=== PATIENT | female | born 1995 | race Caucasian/White ===

== ENCOUNTER 2017-05-15 09:33 | Emergency (ER) | payer MEDICAID ==
[~2017-05-15] VITALS: Ht 160 cm; Wt 93.7 kg
[~2017-05-15 09:33] MED LIST: ALBU8.5H8 INH
[2017-05-15 09:36] VITALS: BP 110/83
[2017-05-15] MEDS ORDERED: ALBUTEROL/IPRATROPIUM 2.5MG/0.5MG, 3 ML ONE (10:42)
== END 2017-05-15 11:07 | disposition home or self-care (01) ==
LOC: ED 11:01
DX: J45.31 Mild persistent asthma with (acute) exacerbation (principal); J20.9 Acute bronchitis, unspecified
CPT/HCPCS: 71020; 94640; 99284; J7512

== ENCOUNTER 2017-05-26 15:16 | Emergency (ER) | payer MEDICAID ==
[~2017-05-26] VITALS: Ht 160 cm; Wt 95.3 kg
[2017-05-26 15:18] VITALS: BP 131/84
[2017-05-26] MEDS ORDERED: ALBUTEROL/IPRATROPIUM 2.5MG/0.5MG, 3 ML ONE (15:47)
[2017-05-26] MEDS ORDERED: ALBUTEROL/IPRATROPIUM 2.5MG/0.5MG, 3 ML NPPB ONE (16:00)
== END 2017-05-26 16:41 | disposition home or self-care (01) ==
LOC: ED 16:10
DX: J45.909 Unspecified asthma, uncomplicated (principal)
CPT/HCPCS: 93005; 94640; 99283; J7512; J7620

== ENCOUNTER 2017-06-21 09:50 | Emergency (ER) | payer MEDICAID ==
[~2017-06-21] VITALS: Ht 160 cm; Wt 95.8 kg
[2017-06-21 10:11] VITALS: BP 129/84
== END 2017-06-21 10:43 | disposition home or self-care (01) ==
LOC: ED 10:30
DX: Z76.0 Encounter for issue of repeat prescription (principal); J45.909 Unspecified asthma, uncomplicated
CPT/HCPCS: 99283

== ENCOUNTER 2018-07-08 05:18 | Emergency (ER) | payer BC, OTHER ==
[~2018-07-08] VITALS: Ht 157.5 cm; Wt 80.0 kg
[~2018-07-08 05:18] MED LIST changes: +FLUT1AER INH
[2018-07-08] MEDS ORDERED: SODIUM CHLORIDE FLUSH 10ML SYR IVF ONE (05:30)
[2018-07-08] MEDS ORDERED: ONDANSETRON 2MG/ML, 2ML IVPush ONE (05:30)
[2018-07-08] MEDS ORDERED: SODIUM CHLORIDE 0.9% 1,000ML IVBOLUS ONE (05:30)
[2018-07-08] MEDS ORDERED: ONDANSETRON 2MG/ML, 2ML ONE (05:54)
[2018-07-08 06:04] LABS: BASOPHILS # (AUTO) 0.03 x10^3/uL (0-0.1); BASOPHILS % (AUTO) 0 % (0-1); EOSINOPHILS # (AUTO) 0.04 x10^3/uL (0-0.4); EOSINOPHILS % (AUTO) 0 % (1-7); LYMPHOCYTES # (AUTO) 1.11 x10^3/uL (1-3.4); LYMPHOCYTES % (AUTO) 9 % (22-44); MD NO; MEAN CORPUSCULAR HEMOGLOBIN 28.6 pg (27.0-34.8); MEAN CORPUSCULAR HGB CONC 33.8 g/dL (32.4-35.8); MEAN CORPUSCULAR VOLUME 84.6 fL (80-100); MEAN PLATELET VOLUME 8.8 fL (7.4-10.4); MONOCYTES % (AUTO) 8 % (2-9); NEUTROPHILS # (AUTO) 10.22 x10^3/uL (1.8-6.8); NEUTROPHILS % (AUTO) 83 % (42-75); PLATELET COUNT 230 x10^3/uL (130-400); RED BLOOD COUNT 5.22 x10^6/uL (3.82-5.3); RED CELL DISTRIBUTION WIDTH 13.8 % (9.6-15.2)
[2018-07-08 06:14] LABS: ALBUMIN 3.6 g/dL (3.4-5.0); ANION GAP 16 mmol/L (5-15); CALCIUM 9.3 mg/dL (8.5-10.1); CHLORIDE 100 mmol/L (98-107)
[2018-07-08 06:16] LABS: ALANINE AMINOTRANSFERASE 19 U/L (12-78); ALKALINE PHOSPHATASE 70 U/L (45-117); BILIRUBIN,TOTAL 0.5 mg/dL (0.2-1.0); CREATININE 0.99 mg/dL (0.55-1.02); TOTAL PROTEIN 9.1 g/dL (6.4-8.2)
[2018-07-08] MEDS ORDERED: KETOROLAC 30 MG/1 ML IVPush ONE (07:00)
[2018-07-08] MEDS ORDERED: KETOROLAC 30 MG/1 ML ONE (07:04)
[2018-07-08 07:41] LABS: HCG UR SG 1.034 (1.003-1.030); MICROSCOPIC AUTO
[2018-07-08 07:46] LABS: CULTURE INDICATED? NO
[2018-07-08 08:00] VITALS: BP 106/63
== END 2018-07-08 08:03 | disposition home or self-care (01) ==
LOC: ED 05:46
DX: G43.A1 Cyclical vomiting, in migraine, intractable (principal)
CPT/HCPCS: 36415; 80053; 81001; 81025; 83690; 85025; 96361; 96374; 96375; 99283; J1885; J2405; J7030

== ENCOUNTER 2020-02-05 10:47 | Inpatient (IN) | payer BC ==
[~2020-02-05] VITALS: Ht 157.5 cm; Wt 88.1 kg
[2020-02-05] MEDS ORDERED: ONDANSETRON 2MG/ML, 2ML ONE (11:28)
[2020-02-05] MEDS ORDERED: MORPHINE SULFATE 4 MG/ML, 1ML ONE (11:28)
[2020-02-05] MEDS ORDERED: SODIUM CHLORIDE 0.9% 1,000ML IVBOLUS ONE (11:30)
[2020-02-05] MEDS ORDERED: ONDANSETRON 2MG/ML, 2ML IVPush ONE (11:30)
[2020-02-05] MEDS ORDERED: MORPHINE SULFATE 4 MG/ML, 1ML IVPush PRN (11:30)
--- NOTE | 2020-02-05 11:49 | NUR ---
pt to ed from home. sts "gall bladder issues" since November. nausea/vomiting. no appetite, hurts to eat, unintended weight loss of 35 lbs since november . Had HIDA scan and us at [facility], was told needed gall bladder out but [facility] did not schedule her and her pcp told her to go to ed today. abd soft, tender, 6/10 pain. labs/piv/meds per sep plan for US. as
[2020-02-05 12:04] LABS: BASOPHILS # (AUTO) 0.04 x10^3/uL (0-0.1); BASOPHILS % (AUTO) 1 % (0-1); EOSINOPHILS % (AUTO) 1 % (1-7); LYMPHOCYTES # (AUTO) 1.55 x10^3/uL (1-3.4); LYMPHOCYTES % (AUTO) 20 % (22-44); MD NO; MEAN CORPUSCULAR HEMOGLOBIN 28.5 pg (27.0-34.8); MEAN CORPUSCULAR HGB CONC 32.9 g/dL (32.4-35.8); MEAN CORPUSCULAR VOLUME 86.7 fL (80-100); MEAN PLATELET VOLUME 11.1 fL (7.4-10.4); MONOCYTES # (AUTO) 0.88 x10^3/uL (0.2-0.8); MONOCYTES % (AUTO) 11 % (2-9); NEUTROPHILS # (AUTO) 5.25 x10^3/uL (1.8-6.8); NEUTROPHILS % (AUTO) 67 % (42-75); PLATELET COUNT 212 x10^3/uL (130-400); RED BLOOD COUNT 6.06 x10^6/uL (3.82-5.3); RED CELL DISTRIBUTION WIDTH 13.4 % (9.6-15.2)
[2020-02-05 12:20] LABS: ALKALINE PHOSPHATASE 66 U/L (45-117); BILIRUBIN,TOTAL 0.8 mg/dL (0.2-1.0); TOTAL PROTEIN 8.3 g/dL (6.4-8.2)
[2020-02-05 12:27] LABS: ANION GAP 15 mmol/L (5-15); CALCIUM 9.9 mg/dL (8.5-10.1); CHLORIDE 95 mmol/L (98-107)
[2020-02-05 12:28] LABS: ALANINE AMINOTRANSFERASE 41 U/L (12-78); ALBUMIN 3.6 g/dL (3.4-5.0); CREATININE 0.85 mg/dL (0.55-1.02)
--- NOTE | 2020-02-05 12:42 | NUR ---
k 2.1. notified elie and matheus. pa in room for update. pt has pancreatitis, tbadm, krider ordered, placed on monitor SR 90s. ekg obtained. us in prog. pt agrees w poc. as
--- NOTE | 2020-02-05 12:59 | NUR ---
rupesh wilcox from pharm. as
[2020-02-05] MEDS ORDERED: POTASSIUM CHLORIDE 40 MEQ in SODIUM CHLORIDE 0.9% 500 ML IV ONE ×2 (13:00→15:30)
[2020-02-05] MEDS ORDERED: ROCURONIUM 10 MG/ML,10ML ONE (13:15)
[2020-02-05] MEDS ORDERED: DEXAMETHASONE 4 MG/ML, 1ML ONE (13:15)
[2020-02-05] MEDS ORDERED: SUCCINYLCHOLINE 20 MG/ML, 10ML ONE (13:15)
--- NOTE | 2020-02-05 14:10 | NUR ---
report to luis ferrara. as
[2020-02-05] MEDS ORDERED: BISACODYL 10 MG SUPP PR PRN (15:00)
[2020-02-05] MEDS ORDERED: POLYETHYLENE GLYCOL 17 GM PACKET PO PRN (15:00)
[2020-02-05] MEDS ORDERED: ACETAMINOPHEN 325 MG TABLET PO PRN (15:00)
[2020-02-05] MEDS ORDERED: MELATONIN 5 MG TABLET PO PRN (15:00)
[2020-02-05] MEDS ORDERED: DOCUSATE 100 MG CAPSULE PO PRN (15:00)
[2020-02-05 15:09] VITALS: BP 92/67
[2020-02-05] MEDS: ENOXAPARIN 40 MG/0.4 ML SQ SCH (15:21)
[2020-02-05] MEDS: morphine SULFATE 10 MG/ML, 1ML IVPush PRN ×3 (15:22→21:36)
[2020-02-05] MEDS ORDERED: D5%-LR+KCL 20MEQ 1,000 ML IV SCH (15:30)
[2020-02-05 15:49] LABS: C-REACTIVE PROTEIN, QUANT 2.1 mg/dL (0.02-0.49)
[2020-02-05 16:03] LABS: HCT (SEDRATE) 52.5 % (34.6-47.8)
[2020-02-05] MEDS ORDERED: SODIUM PHOSPHATE 20 MMOL in SODIUM CHLORIDE 0.9% 500 ML IV ONE (17:00)
[2020-02-05] MEDS: ONDANSETRON 2MG/ML, 2ML IVPush PRN ×2 (17:07→23:05)
[2020-02-05 17:25] VITALS: BP 87/67
[2020-02-05 17:26] VITALS: BP 103/69
[2020-02-05 17:27] VITALS: BP 90/69
[2020-02-05 19:09] VITALS: BP 106/74
[2020-02-05 19:23] LABS: MICROSCOPIC INDICATED
[2020-02-05] MEDS: LACTATED RINGERS 1,000 ML IV SCH (21:00)
[2020-02-05] MEDS: FAMOTIDINE 20 MG/2 ML IVPush SCH (21:35)
[2020-02-05] MEDS ORDERED: OMNIPAQUE 350 MG/ML, 100ML BOTTLE ONE (23:19)
[2020-02-06 00:59] VITALS: BP 95/60
[2020-02-06 01:15] LABS: ANION GAP 10 mmol/L (5-15); CHLORIDE 104 mmol/L (98-107); CREATININE 0.63 mg/dL (0.55-1.02)
[2020-02-06] MEDS: ONDANSETRON 2MG/ML, 2ML IVPush PRN ×3 (05:29→20:00)
[2020-02-06] MEDS: morphine SULFATE 10 MG/ML, 1ML IVPush PRN ×3 (05:29→16:47)
[2020-02-06 05:30] VITALS: BP 101/65
[2020-02-06] MEDS: LACTATED RINGERS 1,000 ML IV SCH ×2 (06:05→16:23)
[2020-02-06 06:27] LABS: CHLORIDE 107 mmol/L (98-107)
[2020-02-06 06:31] LABS: BASOPHILS # (AUTO) 0.04 x10^3/uL (0-0.1); BASOPHILS % (AUTO) 1 % (0-1); EOSINOPHILS # (AUTO) 0.29 x10^3/uL (0-0.4); EOSINOPHILS % (AUTO) 5 % (1-7); LYMPHOCYTES # (AUTO) 2.67 x10^3/uL (1-3.4); LYMPHOCYTES % (AUTO) 42 % (22-44); MD NO; MEAN CORPUSCULAR HGB CONC 33.6 g/dL (32.4-35.8); MEAN PLATELET VOLUME 11.3 fL (7.4-10.4); MONOCYTES % (AUTO) 13 % (2-9); NEUTROPHILS # (AUTO) 2.55 x10^3/uL (1.8-6.8); NEUTROPHILS % (AUTO) 40 % (42-75); PLATELET COUNT 131 x10^3/uL (130-400); RED BLOOD COUNT 4.37 x10^6/uL (3.82-5.3); RED CELL DISTRIBUTION WIDTH 13.7 % (9.6-15.2)
[2020-02-06 06:44] LABS: ALANINE AMINOTRANSFERASE 27 U/L (12-78); ALBUMIN 2.5 g/dL (3.4-5.0); ALKALINE PHOSPHATASE 42 U/L (45-117); ANION GAP 12 mmol/L (5-15); BILIRUBIN,TOTAL 0.4 mg/dL (0.2-1.0); CALCIUM 8.3 mg/dL (8.5-10.1); CHOL/HDL RATIO 5.5; CHOLESTEROL, TOTAL 122 mg/dL (140-239); CREATININE 0.57 mg/dL (0.55-1.02); HDL CHOL % 18 % (28-40); HDL CHOLESTEROL (DIRECT) 22 mg/dL (40-60); LDL CHOLESTEROL,CALCULATED 72 mg/dL (54-169); LDL/HDL RATIO 3.3 (0.5-3.0); TOTAL PROTEIN 5.3 g/dL (6.4-8.2); TRIGLYCERIDES 141 mg/dL (50-200); VLDL CHOLESTEROL 28 mg/dL (0-25)
[2020-02-06] MEDS: FAMOTIDINE 20 MG/2 ML IVPush SCH ×2 (08:26→21:24)
[2020-02-06 08:57] VITALS: BP 106/57
[2020-02-06 09:41] LABS: MICROSCOPIC INDICATED
[2020-02-06 09:44] LABS: HCG UR SG > 1.045 (1.003-1.030)
[2020-02-06] MEDS ORDERED: BUPIVACAINE/EPI 0.5% 1:200K ONE (10:19)
[2020-02-06] MEDS ORDERED: MIDAZOLAM 1 MG/ML, 2ML ONE (11:41)
[2020-02-06] MEDS ORDERED: FENTANYL PF 250 MCG/5ML ONE (11:41)
[2020-02-06] MEDS ORDERED: PROPOFOL 50 ML ONE (11:41)
[2020-02-06] MEDS ORDERED: BUPIVACAINE/EPI 0.5% 1:200K IM ONE (13:26)
[2020-02-06] MEDS ORDERED: POTASSIUM CHLORIDE 40 MEQ in SODIUM CHLORIDE 0.9% 500 ML IV ONE (13:30)
[2020-02-06] MEDS: FENTANYL PF 100 MCG/2ML IV PRN ×2 (14:23→14:45)
[2020-02-06] MEDS ORDERED: OXYcodone 5 MG/5 ML ORAL.SOL UDC ONE (14:24)
[2020-02-06] MEDS ORDERED: MORPHINE SULFATE 4 MG/ML, 1ML ONE (14:24)
[2020-02-06] MEDS ORDERED: PROMETHAZINE 25 MG/ML, 1ML IVPush PRN (14:30)
[2020-02-06] MEDS ORDERED: ALBUTEROL SULFATE 2.5 MG/3 ML NPPB PRN (14:30)
[2020-02-06] MEDS ORDERED: hydrALAzine 20 MG/ML, 1ML IV PRN (14:30)
[2020-02-06] MEDS ORDERED: ACETAMINOPHEN 325 MG TABLET PO PRN (14:30)
[2020-02-06] MEDS ORDERED: ONDANSETRON 2MG/ML, 2ML IVPush PRN (14:30)
[2020-02-06] MEDS ORDERED: MEPERIDINE/PF 25MG/0.5ML IVPush PRN (14:30)
[2020-02-06] MEDS ORDERED: OXYcodone 5 MG/5 ML ORAL.SOL UDC PO PRN (14:30)
[2020-02-06] MEDS ORDERED: LABETALOL 5MG/ML, 20ML IV PRN (14:30)
[2020-02-06] MEDS ORDERED: morphine SULFATE 10 MG/ML, 1ML IVPush PRN (14:30)
[2020-02-06] MEDS ORDERED: FENTANYL PF 100 MCG/2ML ONE (14:35)
[2020-02-06] MEDS ORDERED: ONDANSETRON 2MG/ML, 2ML ONE (14:55)
[2020-02-06] MEDS ORDERED: METOCLOPRAMIDE 5 MG/ML, 2ML ONE (14:58)
[2020-02-06] MEDS: METOCLOPRAMIDE 5 MG/ML, 2ML IVPush PRN (14:59)
[2020-02-06] MEDS ORDERED: ONDANSETRON 2MG/ML, 2ML IVPush ONE (15:00)
[2020-02-06 15:50] VITALS: BP 108/74
[2020-02-06] MEDS: ENOXAPARIN 40 MG/0.4 ML SQ SCH (16:22)
[2020-02-06] MEDS ORDERED: ONDANSETRON 4 MG TABLET PO PRN (16:30)
[2020-02-06 19:03] VITALS: BP 82/57
[2020-02-06] MEDS: OXYcodone/APAP 5/325MG TABLET PO PRN (20:04)
[2020-02-06 20:51] LABS: ANION GAP 10 mmol/L (5-15); CALCIUM 7.8 mg/dL (8.5-10.1); CHLORIDE 108 mmol/L (98-107); CREATININE 0.54 mg/dL (0.55-1.02)
[2020-02-07] MEDS: OXYcodone/APAP 5/325MG TABLET PO PRN ×7 (00:28→22:17)
[2020-02-07 00:37] VITALS: BP 92/64
[2020-02-07] MEDS: ONDANSETRON ODT 4 MG PO PRN ×2 (02:40→20:00)
[2020-02-07] MEDS: morphine SULFATE 10 MG/ML, 1ML IVPush PRN ×3 (02:56→20:10)
[2020-02-07 04:00] VITALS: BP 93/65
[2020-02-07 05:18] LABS: ALBUMIN 2.3 g/dL (3.4-5.0); ANION GAP 8 mmol/L (5-15); CALCIUM 7.5 mg/dL (8.5-10.1); CHLORIDE 109 mmol/L (98-107)
[2020-02-07 05:19] LABS: BASOPHILS # (AUTO) 0.03 x10^3/uL (0-0.1); BASOPHILS % (AUTO) 1 % (0-1); EOSINOPHILS # (AUTO) 0.02 x10^3/uL (0-0.4); EOSINOPHILS % (AUTO) 0 % (1-7); LYMPHOCYTES % (AUTO) 22 % (22-44); MD NO; MEAN CORPUSCULAR HGB CONC 33.5 g/dL (32.4-35.8); MEAN CORPUSCULAR VOLUME 86.6 fL (80-100); MEAN PLATELET VOLUME 11.2 fL (7.4-10.4); MONOCYTES # (AUTO) 0.54 x10^3/uL (0.2-0.8); MONOCYTES % (AUTO) 11 % (2-9); NEUTROPHILS # (AUTO) 3.26 x10^3/uL (1.8-6.8); NEUTROPHILS % (AUTO) 66 % (42-75); PLATELET COUNT 110 x10^3/uL (130-400); RED BLOOD COUNT 3.94 x10^6/uL (3.82-5.3); RED CELL DISTRIBUTION WIDTH 14.1 % (9.6-15.2)
[2020-02-07 05:23] LABS: ALANINE AMINOTRANSFERASE 32 U/L (12-78); ALKALINE PHOSPHATASE 40 U/L (45-117); BILIRUBIN,TOTAL 0.4 mg/dL (0.2-1.0); CREATININE 0.39 mg/dL (0.55-1.02); TOTAL PROTEIN 5.3 g/dL (6.4-8.2)
[2020-02-07] MEDS: LACTATED RINGERS 1,000 ML IV SCH (05:26)
[2020-02-07] MEDS: METOCLOPRAMIDE 5 MG/ML, 2ML IVPush PRN ×3 (05:42→21:58)
[2020-02-07] MEDS ORDERED: POTASSIUM CHLORIDE 40 MEQ in SODIUM CHLORIDE 0.9% 500 ML IV ONE (09:00)
[2020-02-07] MEDS ORDERED: MAGNESIUM SULFATE PMX 2GM/50ML 50 ML IV ONE (09:00)
[2020-02-07 09:20] VITALS: BP 90/68
[2020-02-07] MEDS: FAMOTIDINE 20 MG/2 ML IVPush SCH (09:24)
[2020-02-07] MEDS: ONDANSETRON 2MG/ML, 2ML IVPush PRN ×2 (09:33→16:18)
[2020-02-07 14:02] VITALS: BP 106/72
[2020-02-07 14:24] VITALS: BP 90/60
[2020-02-07] MEDS: ENOXAPARIN 40 MG/0.4 ML SQ SCH (16:18)
[2020-02-07 19:06] VITALS: BP 118/67
[2020-02-07] MEDS: FAMOTIDINE 20 MG TABLET PO SCH (20:00)
[2020-02-08] MEDS: LACTATED RINGERS 1,000 ML IV SCH ×2 (01:09→22:00)
[2020-02-08] MEDS: morphine SULFATE 10 MG/ML, 1ML IVPush PRN ×6 (01:13→23:04)
[2020-02-08 04:01] VITALS: BP 103/68
[2020-02-08 04:41] LABS: CHLORIDE 112 mmol/L (98-107)
[2020-02-08 04:45] LABS: ANION GAP 8 mmol/L (5-15); CALCIUM 7.4 mg/dL (8.5-10.1); CREATININE 0.49 mg/dL (0.55-1.02)
[2020-02-08 07:00] VITALS: BP 94/61
[2020-02-08] MEDS ORDERED: POTASSIUM CHLORIDE 20 MEQ in SODIUM CHLORIDE 0.9% 250 ML IV ONE (09:30)
[2020-02-08] MEDS ORDERED: FAMOTIDINE 20 MG/2 ML ONE (09:35)
[2020-02-08] MEDS: FAMOTIDINE 20 MG TABLET PO SCH ×3 (09:38→21:40)
[2020-02-08] MEDS: ONDANSETRON 2MG/ML, 2ML IVPush PRN ×3 (09:38→23:04)
[2020-02-08] MEDS: METOCLOPRAMIDE 5 MG/ML, 2ML IVPush PRN ×2 (09:39→15:45)
[2020-02-08] MEDS ORDERED: MORPHINE SULFATE 4 MG/ML, 1ML ONE (10:23)
[2020-02-08 14:49] VITALS: BP 100/69
[2020-02-08] MEDS: ENOXAPARIN 40 MG/0.4 ML SQ SCH (15:45)
[2020-02-08 20:18] VITALS: BP 93/65
[2020-02-08] MEDS ORDERED: FAMOTIDINE 40 MG TABLET ONE (21:38)
[2020-02-09 02:00] VITALS: BP 102/70
[2020-02-09] MEDS: LACTATED RINGERS 1,000 ML IV SCH ×2 (05:30→16:15)
[2020-02-09 06:24] LABS: BASOPHILS # (AUTO) 0.02 x10^3/uL (0-0.1); BASOPHILS % (AUTO) 1 % (0-1); EOSINOPHILS # (AUTO) 0.14 x10^3/uL (0-0.4); EOSINOPHILS % (AUTO) 4 % (1-7); LYMPHOCYTES # (AUTO) 2.09 x10^3/uL (1-3.4); LYMPHOCYTES % (AUTO) 52 % (22-44); MD NO; MEAN CORPUSCULAR VOLUME 87.9 fL (80-100); MEAN PLATELET VOLUME 10.6 fL (7.4-10.4); MONOCYTES # (AUTO) 0.49 x10^3/uL (0.2-0.8); MONOCYTES % (AUTO) 12 % (2-9); NEUTROPHILS # (AUTO) 1.25 x10^3/uL (1.8-6.8); NEUTROPHILS % (AUTO) 31 % (42-75); PLATELET COUNT 111 x10^3/uL (130-400); RED BLOOD COUNT 3.95 x10^6/uL (3.82-5.3); RED CELL DISTRIBUTION WIDTH 14.6 % (9.6-15.2)
[2020-02-09 06:27] LABS: ALBUMIN 2.1 g/dL (3.4-5.0); ANION GAP 6 mmol/L (5-15); CALCIUM 7.7 mg/dL (8.5-10.1); CHLORIDE 107 mmol/L (98-107); CREATININE 0.36 mg/dL (0.55-1.02)
[2020-02-09 07:12] VITALS: BP 98/66
[2020-02-09] MEDS ORDERED: FAMOTIDINE 40 MG TABLET ONE (08:58)
[2020-02-09] MEDS: morphine SULFATE 10 MG/ML, 1ML IVPush PRN ×3 (09:08→21:00)
[2020-02-09] MEDS: POTASSIUM CHLORIDE 20 MEQ in SODIUM CHLORIDE 0.9% 250 ML IV SCH ×2 (09:08→22:27)
[2020-02-09] MEDS: ONDANSETRON 2MG/ML, 2ML IVPush PRN (09:08)
[2020-02-09] MEDS ORDERED: MAGNESIUM SULFATE PMX 2GM/50ML 50 ML IV ONE (10:00)
[2020-02-09 13:35] VITALS: BP 97/68
[2020-02-09] MEDS: METOCLOPRAMIDE 5 MG/ML, 2ML IVPush PRN (16:11)
[2020-02-09] MEDS: ENOXAPARIN 40 MG/0.4 ML SQ SCH (16:19)
[2020-02-09 20:54] VITALS: BP 108/71
[2020-02-09] MEDS: FAMOTIDINE 20 MG/2 ML IV SCH (21:00)
[2020-02-09] MEDS: OXYcodone/APAP 5/325MG TABLET PO PRN (22:40)
[2020-02-10 01:56] VITALS: BP 96/53
[2020-02-10] MEDS: LACTATED RINGERS 1,000 ML IV SCH (03:28)
[2020-02-10] MEDS: OXYcodone/APAP 5/325MG TABLET PO PRN ×2 (03:28→21:03)
[2020-02-10 05:44] LABS: BASOPHILS # (AUTO) 0.02 x10^3/uL (0-0.1); BASOPHILS % (AUTO) 1 % (0-1); EOSINOPHILS # (AUTO) 0.18 x10^3/uL (0-0.4); EOSINOPHILS % (AUTO) 4 % (1-7); LYMPHOCYTES # (AUTO) 2.14 x10^3/uL (1-3.4); LYMPHOCYTES % (AUTO) 53 % (22-44); MD NO; MEAN CORPUSCULAR HEMOGLOBIN 28.9 pg (27.0-34.8); MEAN CORPUSCULAR HGB CONC 32.5 g/dL (32.4-35.8); MEAN CORPUSCULAR VOLUME 88.8 fL (80-100); MEAN PLATELET VOLUME 10.4 fL (7.4-10.4); MONOCYTES # (AUTO) 0.49 x10^3/uL (0.2-0.8); MONOCYTES % (AUTO) 12 % (2-9); NEUTROPHILS # (AUTO) 1.23 x10^3/uL (1.8-6.8); NEUTROPHILS % (AUTO) 30 % (42-75); PLATELET COUNT 121 x10^3/uL (130-400); RED CELL DISTRIBUTION WIDTH 14.4 % (9.6-15.2)
[2020-02-10 06:01] LABS: CHLORIDE 109 mmol/L (98-107)
[2020-02-10 06:05] LABS: ALBUMIN 2.1 g/dL (3.4-5.0); ANION GAP 6 mmol/L (5-15); CALCIUM 7.8 mg/dL (8.5-10.1); CREATININE 0.38 mg/dL (0.55-1.02)
[2020-02-10 07:35] VITALS: BP 90/60
[2020-02-10] MEDS: FAMOTIDINE 20 MG/2 ML IV SCH ×2 (08:40→19:56)
[2020-02-10] MEDS: morphine SULFATE 10 MG/ML, 1ML IVPush PRN ×3 (08:49→19:56)
[2020-02-10] MEDS: POTASSIUM CHLORIDE 20 MEQ in SODIUM CHLORIDE 0.9% 250 ML IV SCH ×2 (09:14→19:56)
[2020-02-10] MEDS: D5%-0.45NACL+KCL 20MEQ 1,000 ML IV SCH (11:42)
[2020-02-10 12:26] VITALS: BP 103/71
[2020-02-10] MEDS: ONDANSETRON 2MG/ML, 2ML IVPush PRN ×2 (14:45→19:56)
[2020-02-10] MEDS: METOCLOPRAMIDE 5 MG/ML, 2ML IVPush PRN (16:30)
[2020-02-10] MEDS: ENOXAPARIN 40 MG/0.4 ML SQ SCH (16:30)
[2020-02-10 20:00] VITALS: BP 110/68
[2020-02-11] MEDS: D5%-0.45NACL+KCL 20MEQ 1,000 ML IV SCH ×3 (01:49→23:00)
[2020-02-11] MEDS: ONDANSETRON 2MG/ML, 2ML IVPush PRN ×4 (01:50→20:32)
[2020-02-11] MEDS: morphine SULFATE 10 MG/ML, 1ML IVPush PRN ×2 (01:50→17:02)
[2020-02-11 02:15] VITALS: BP 98/62
[2020-02-11 04:52] LABS: BASOPHILS # (AUTO) 0.03 x10^3/uL (0-0.1); BASOPHILS % (AUTO) 1 % (0-1); EOSINOPHILS # (AUTO) 0.21 x10^3/uL (0-0.4); EOSINOPHILS % (AUTO) 5 % (1-7); LYMPHOCYTES # (AUTO) 2.41 x10^3/uL (1-3.4); LYMPHOCYTES % (AUTO) 50 % (22-44); MD NO; MEAN CORPUSCULAR HEMOGLOBIN 29.1 pg (27.0-34.8); MEAN CORPUSCULAR HGB CONC 33.3 g/dL (32.4-35.8); MEAN CORPUSCULAR VOLUME 87.6 fL (80-100); MEAN PLATELET VOLUME 10.4 fL (7.4-10.4); MONOCYTES # (AUTO) 0.51 x10^3/uL (0.2-0.8); MONOCYTES % (AUTO) 11 % (2-9); NEUTROPHILS # (AUTO) 1.65 x10^3/uL (1.8-6.8); NEUTROPHILS % (AUTO) 34 % (42-75); PLATELET COUNT 131 x10^3/uL (130-400); RED BLOOD COUNT 4.03 x10^6/uL (3.82-5.3); RED CELL DISTRIBUTION WIDTH 14.6 % (9.6-15.2)
[2020-02-11 04:58] LABS: ALBUMIN 2.1 g/dL (3.4-5.0); CHLORIDE 112 mmol/L (98-107)
[2020-02-11 05:01] LABS: CREATININE 0.42 mg/dL (0.55-1.02)
[2020-02-11 05:22] LABS: ANION GAP 3 mmol/L (5-15)
[2020-02-11 07:00] VITALS: BP 104/72
[2020-02-11] MEDS: FAMOTIDINE 20 MG/2 ML IV SCH ×2 (07:57→20:32)
[2020-02-11 13:43] VITALS: BP 114/77
[2020-02-11] MEDS: METOCLOPRAMIDE 5 MG/ML, 2ML IVPush PRN (15:14)
[2020-02-11] MEDS: ENOXAPARIN 40 MG/0.4 ML SQ SCH (16:58)
[2020-02-11 19:08] VITALS: BP 101/67
[2020-02-11] MEDS: OXYcodone/APAP 5/325MG TABLET PO PRN (20:32)
[2020-02-12 00:24] VITALS: BP 95/68
[2020-02-12 06:52] VITALS: BP 114/78
[2020-02-12] MEDS: FAMOTIDINE 20 MG/2 ML IV SCH (08:38)
[2020-02-12] MEDS: ONDANSETRON 2MG/ML, 2ML IVPush PRN ×2 (08:38→14:20)
[2020-02-12] MEDS: D5%-0.45NACL+KCL 20MEQ 1,000 ML IV SCH (10:06)
[2020-02-12] MEDS: METOCLOPRAMIDE 5 MG/ML, 2ML IVPush PRN (11:19)
[2020-02-12 12:35] VITALS: BP 106/74
[2020-02-12] MEDS: OXYcodone/APAP 5/325MG TABLET PO PRN (14:20)
[2020-02-12] MEDS ORDERED: ONDA4TAB13 PO (14:27)
[2020-02-12] MEDS: ENOXAPARIN 40 MG/0.4 ML SQ SCH (16:30)
[2020-02-12] MEDS ORDERED: OXYC-302 PO (16:36)
== END 2020-02-12 17:02 | disposition home or self-care (01) | DRG 417 ==
LOC: ED 12:45 → SUATTDRO 13:06 → 4EST 14:41 → ED 14:53 → EDIP 14:53 → 4EST 15:46 → 4NE 02-06 15:32 → DCLOUNGE 02-12 16:48
PROVIDERS: ADMIT Internal Medicine; ATTEND Family Medicine
PROC: 0FT44ZZ Resection of Gallbladder, Percutaneous Endoscopic Approach (ICD-10-PCS; principal; 2020-02-06 12:30)
DX: K80.10 Calculus of gallbladder with chronic cholecystitis without obstruction (principal); K85.10 Biliary acute pancreatitis without necrosis or infection; E87.1 Hypo-osmolality and hyponatremia; E87.2 Acidosis; Z20.828 Contact with and (suspected) exposure to other viral communicable diseases; E83.42 Hypomagnesemia; E87.6 Hypokalemia; F17.200 Nicotine dependence, unspecified, uncomplicated; J45.909 Unspecified asthma, uncomplicated; K59.00 Constipation, unspecified; K82.8 Other specified diseases of gallbladder; Z83.3 Family history of diabetes mellitus; Z87.09 Personal history of other diseases of the respiratory system; T73.0XXA Starvation, initial encounter
CPT/HCPCS: 36415; 96374; 96375; 99285; J3490; 71046; 74178; 76700; 80048; 80053; 80061; 80069; 81001; 81025; 83690; 83735; 84100; 84443; 84703; 85025; 85651; 86140; 87086; 87635; 88304; 93005; G0378; J1100; J1650; J2250; J2405; J2704; J3010; J3480; Q0162; Q9967; J0330; J2270; J2765; J3475; J7030; J7040; J7050; J7120

== ENCOUNTER 2021-03-07 10:39 | Emergency (ER) | payer SELFPAY ==
[~2021-03-07] VITALS: Ht 160 cm; Wt 87.5 kg
[~2021-03-07 10:39] MED LIST changes: +ONDA4TAB13 PO; +OXYC1TAB14 PO
[2021-03-07 12:24] VITALS: BP 124/86
== END 2021-03-07 12:27 | disposition home or self-care (01) ==
LOC: ED 12:10
DX: J45.21 Mild intermittent asthma with (acute) exacerbation (principal); Z87.891 Personal history of nicotine dependence
CPT/HCPCS: 99281